=== PATIENT | female | born 1995 | race African-American/Black ===

== ENCOUNTER → 2019-08-04 | Outpatient (CLI) | payer OTHER ==
[2019-08-04 18:00] LABS: HEMATOCRIT 37.7 % (36.0-47.0); HEMOGLOBIN 12.8 g/dl (12.0-15.5); MEAN CORPUSCULAR HEMOGLOBIN 33.4 pg (27.0-33.0); MEAN CORPUSCULAR VOLUME 98.4 fl (80.0-96.0); PLATELET COUNT, AUTOMATED 222 10^3/uL (150-450); RED BLOOD COUNT 3.83 10^6/uL (4.00-5.40); WHITE BLOOD COUNT 9.4 10^3/uL (4.0-10.0)
[2019-08-04 18:22] LABS: ALT/SGPT 19 U/L (12-78); BILIRUBIN,TOTAL 0.4 MG/DL (0.2-1.0); BLOOD UREA NITROGEN 13 MG/DL (7-18); CALCIUM LEVEL 9.3 MG/DL (8.5-10.1); CARBON DIOXIDE LEVEL 29 MEQ/L (21-32); CHLORIDE LEVEL 103 MEQ/L (98-107); CREATININE FOR GFR 0.86 MG/DL (0.55-1.30); FREE T4 1.06 NG/DL (0.76-1.46); GLOMERULAR FILTRATION RATE > 60.0 (>60); GLUCOSE, FASTING 76 MG/DL (70-100); POTASSIUM SERUM 4.2 MEQ/L (3.5-5.1); PROGESTERONE 0.55 NG/ML; SODIUM LEVEL 138 MEQ/L (136-145); THYROID STIMULATING HORMONE 0.904 uIU/ML (0.358-3.740)
[2019-08-04 18:47] LABS: HCG, SERUM QUALITATIVE NEGATIVE (NEGATIVE)
[2019-08-04 19:12] LABS: HEMOGLOBIN A1c 4.4 %
== END ==
LOC: M SMT 12:01
PROVIDERS: ATTEND Advanced Practice Midwife
DX: N92.5 Other specified irregular menstruation (principal)

== ENCOUNTER 2019-11-11 08:41 | Emergency (ER) | payer OTHER ==
[~2019-11-11] VITALS: Ht 170.2 cm; Wt 109.9 kg
[2019-11-11 09:14] LABS: BASO # 0.1 10^3/uL (0.0-0.2); BASO % 0.4 % (0.0-1.0); EOS % 0.1 % (0.0-3.0); HEMATOCRIT 35.2 % (36.0-47.0); HEMOGLOBIN 12.1 g/dl (12.0-15.5); LYMPH # 1.9 10^3/uL (1.5-5.0); LYMPH % 12.9 % (24.0-44.0); MEAN CORPUSCULAR HEMOGLOBIN 32.8 pg (27.0-33.0); MEAN CORPUSCULAR HGB CONC 34.4 g/dl (32.0-36.5); MEAN CORPUSCULAR VOLUME 95.4 fl (80.0-96.0); MONO # 0.6 10^3/uL (0.0-0.8); MONO % 3.9 % (0.0-5.0); NEUTROPHILS % 82.3 % (36.0-66.0); PLATELET COUNT, AUTOMATED 263 10^3/uL (150-450); RED BLOOD COUNT 3.69 10^6/uL (4.00-5.40); WHITE BLOOD COUNT 14.5 10^3/uL (4.0-10.0)
--- NOTE | 2019-11-11 10:47 | REP ---
EMERGENCY FIRST TRIMESTER OBSTETRIC SONOGRAPHY: HISTORY: Bilateral pelvic pain. FINDINGS: Transabdominal scanning confirms the presence of a single living intrauterine gestation. Brethren-rump length of the embryonic pole is 23 mm. This corresponds to a gestational age estimate of 9 weeks 0 days. heart rate is recorded at 178 beats per minute. There is a moderate to large subchorionic hemorrhage identified along the fundal surface of the gestational sac, 5.1 x 6.9 x 3.9 cm. No extrauterine abnormalities observed. IMPRESSION: Viable single intrauterine gestation at 9 weeks 0 days by crown-rump length. AIDE by sonography June 05, 2020. A 6.9 cm fairly large hypoechoic zone adjacent to the gestational sac. Probable subchorionic bleed. Followup suggested. Electronically Signed by Geronimo Lock MD 11/12/2019 05:11 A
[2019-11-11 11:10] VITALS: BP 106/52
== END 2019-11-11 11:16 | disposition home or self-care (01) ==
LOC: M ED 08:41
DX: O21.9 Vomiting of pregnancy, unspecified (principal); Z3A.09 9 weeks gestation of pregnancy

== ENCOUNTER → 2020-01-18 | Outpatient (REF) | payer OTHER ==
[2020-01-18 14:27] LABS: INFLUENZA A AMPLIFICATION NEGATIVE (NEGATIVE); INFLUENZA B AMPLIFICATION NEGATIVE (NEGATIVE)
== END ==
LOC: M LAB REF 13:52
PROVIDERS: ATTEND Physician Assistant
DX: J11.1 Influenza due to unidentified influenza virus with other respiratory manifestations (principal)

== ENCOUNTER 2020-04-05 14:36 | Outpatient (CLI) | payer OTHER ==
[~2020-04-05] VITALS: Ht 170.2 cm; Wt 116.0 kg
[2020-04-05] MEDS ORDERED: PRENTAB9 PO (14:43)
== END 2020-04-05 16:14 | disposition home or self-care (01) ==
LOC: M LDO 14:36
PROVIDERS: ATTEND Obstetrics & Gynecology
DX: O26.893 Other specified pregnancy related conditions, third trimester (principal); R10.9 Unspecified abdominal pain; Z3A.29 29 weeks gestation of pregnancy
CPT/HCPCS: 87086; G0378; G0463

== ENCOUNTER 2020-05-31 14:45 | Inpatient (IN) | payer OTHER ==
[~2020-05-31 14:45] MED LIST: PRENTAB9 PO
[2020-05-31] MEDS ORDERED: OXYTOCIN 30 UNITS IN 0.9% NaCl 500ML IV BAG (J2590) As Ordered ONE (15:41)
[2020-05-31] MEDS ORDERED: OXYTOCIN 30 UNITS IN 0.9% NaCl 500ML IV BAG (J2590) ONE (19:34)
[2020-05-31] MEDS ORDERED: miSOPROStol 50 MCG 1/2 TAB (S0191) ONE (19:34)
[2020-05-31] MEDS ORDERED: miSOPROStol 25 MCG 1/4 TAB (S0191) As Ordered ONE (19:34)
[2020-05-31] MEDS ORDERED: miSOPROStol 25 MCG 1/4 TAB (S0191) ONE (19:34)
[2020-05-31] MEDS ORDERED: miSOPROStol 50 MCG 1/2 TAB (S0191) As Ordered ONE (23:49)
[2020-06-01] MEDS ORDERED: BICITRA 30ML SOLN UDC As Ordered ONE ×2 (02:34→02:41)
[2020-06-01] MEDS ORDERED: ceFAZolin 2 GM/D5W 50 ML IV BAG (J0690 PER 500MG) As Ordered ONE ×2 (02:34→02:41)
[2020-06-01] MEDS ORDERED: ceFAZolin 1GM VIAL (J0690 PER 500MG) As Ordered ONE ×2 (02:34→02:41)
[2020-06-01] MEDS ORDERED: ONDANSETRON 4MG/2ML VIAL As Ordered ONE (05:10)
[2020-06-01] MEDS ORDERED: fentaNYL 100 MCG/2 ML INJECTION (J3010) As Ordered ONE (05:50)
[2020-06-01] MEDS ORDERED: METOCLOPRAMIDE INJ 10MG/2ML VIAL (J2765 PER 1) As Ordered ONE (06:03)
[2020-06-01] MEDS ORDERED: KETOROLAC 30 MG/ML 1ML VIAL As Ordered ONE ×3 (11:25→23:46)
[2020-06-02] MEDS ORDERED: KETOROLAC 30 MG/ML 1ML VIAL As Ordered ONE (05:47)
[2020-06-02] MEDS ORDERED: PRENATAL VITAMINS CHEWABLE TABLET As Ordered ONE (08:43)
[2020-06-02] MEDS ORDERED: PERCOCET 5MG/325MG TAB As Ordered ONE (17:16)
[2020-06-02] MEDS ORDERED: IBUPROFEN 800 MG TAB As Ordered ONE (21:57)
[2020-06-03] MEDS ORDERED: PERCOCET 5MG/325MG TAB As Ordered ONE ×2 (04:18→13:28)
[2020-06-03] MEDS ORDERED: IBUPROFEN 800 MG TAB As Ordered ONE ×3 (05:40→21:37)
[2020-06-03] MEDS ORDERED: PRENATAL VITAMINS CHEWABLE TABLET As Ordered ONE (09:19)
[2020-06-03] MEDS ORDERED: MIRALAX *UNIT DOSE* 17GM PACKET As Ordered ONE ×2 (09:19→21:36)
[2020-06-04] MEDS ORDERED: PERCOCET 5MG/325MG TAB As Ordered ONE (01:10)
[2020-06-04] MEDS ORDERED: IBUPROFEN 800 MG TAB As Ordered ONE (05:42)
[2020-06-04] MEDS ORDERED: PRENATAL VITAMINS CHEWABLE TABLET As Ordered ONE (08:54)
== END 2020-06-04 11:00 | disposition home or self-care (01) | DRG 773 ==
LOC: M LDI 14:45
PROVIDERS: ADMIT Obstetrics & Gynecology; ATTEND Obstetrics & Gynecology
PROC: 10D00Z1 Extraction of Products of Conception, Low, Open Approach (ICD-10-PCS; principal; 2020-06-01)
DX: O41.03X0 Oligohydramnios, third trimester, not applicable or unspecified (principal); O76 Abnormality in fetal heart rate and rhythm complicating labor and delivery; Z37.0 Single live birth; Z3A.37 37 weeks gestation of pregnancy; O36.5990 Maternal care for other known or suspected poor fetal growth, unspecified trimester, not applicable or unspecified; O99.214 Obesity complicating childbirth; O99.02 Anemia complicating childbirth

== ENCOUNTER → 2020-10-01 | Outpatient (CLI) | payer OTHER | LOC: M LABSMTC 13:37 | PROVIDERS: ATTEND Family Medicine | DX: Z20.828 Contact with and (suspected) exposure to other viral communicable diseases (principal) ==

== ENCOUNTER 2020-11-13 13:14 | Inpatient (IN) | payer OTHER ==
[2020-11-13] VITALS (10 sets, daily range): BP systolic 125–176; BP diastolic 63–90
[~2020-11-13] VITALS: Ht 170.2 cm; Wt 113.6 kg
--- OUTSIDE RECORDS SUMMARY | 2020-11-13 13:19 | CCD ---
Author Author [facility] Address Unknown Phone Unavailable Care Team Providers Care Audit Senior Associate Name Role Phone LETTIERE, A SIDNEY PA Unavailable Unavailable LETTIERE, A SIDNEY PA Unavailable Unavailable LETTIERE, A SIDNEY PA Unavailable Unavailable LETTIERE, A SIDNEY PA Unavailable Unavailable LETTIERE, A SIDNEY PA Unavailable Unavailable LETTIERE, A SIDNEY PA Unavailable Unavailable LETTIERE, A SIDNEY PA Unavailable Unavailable LETTIERE, A SIDNEY PA Unavailable Unavailable LETTIERE, A SIDNEY PA Unavailable Unavailable LETTIERE, A SIDNEY PA Unavailable Unavailable LETTIERE, A SIDNEY PA Unavailable Unavailable LETTIERE, A SIDNEY PA Unavailable Unavailable LETTIERE, A SIDNEY PA Unavailable Unavailable LETTIERE, A SIDNEY PA Unavailable Unavailable LETTIERE, A SIDNEY PA Unavailable Unavailable LETTIERE, A SIDNEY PA Unavailable Unavailable LETTIERE, A SIDNEY PA Unavailable Unavailable LETTIERE, A SIDNEY PA Unavailable Unavailable LETTIERE, A SIDNEY PA Unavailable Unavailable LETTIERE, A SIDNEY PA Unavailable Unavailable LETTIERE, A SIDNEY PA Unavailable Unavailable LETTIERE, A SIDNEY PA Unavailable Unavailable LETTIERE, A SIDNEY PA Unavailable Unavailable LETTIERE, A SIDNEY PA Unavailable Unavailable LETTIERE, A SIDNEY PA Unavailable Unavailable LETTIERE, A SIDNEY PA Unavailable Unavailable LETTIERE, A SIDNEY PA Unavailable Unavailable LETTIERE, A SIDNEY PA Unavailable Unavailable LETTIERE, A SIDNEY PA Unavailable Unavailable Re-disclosure Warning The records that you are about to access may contain information from federally-assisted alcohol or drug abuse programs. If such information is present, then the following federally mandated warning applies: This information has been disclosed to you from records protected by federal confidentiality rules (42 CFR part 2). The federal rules prohibit you from making any further disclosure of this information unless further disclosure is expressly permitted by the written consent of the person to whom it pertains or as otherwise permitted by 42 CFR part 2. A general authorization for the release of medical or other information is NOT sufficient for this purpose. The Federal rules restrict any use of the information to criminally investigate or prosecute any alcohol or drug abuse patient.The records that you are about to access may contain highly sensitive health information, the redisclosure of which is protected by Article 27-F of the [facility] Public Health law. If you continue you may have access to information: Regarding HIV / AIDS; Provided by facilities licensed or operated by the [facility] Office of Mental Health; or Provided by the [facility] Office for People With Developmental Disabilities. If such information is present, then the following [facility] mandated warning applies: This information has been disclosed to you from confidential records which are protected by state law. State law prohibits you from making any further disclosure of this information without the specific written consent of the person to whom it pertains, or as otherwise permitted by law. Any unauthorized further disclosure in violation of state law may result in a fine or long term sentence or both. A general authorization for the release of medical or other information is NOT sufficient authorization for further disc losure. Family History Family Member Name Family Member Gender Family Member Status Date o f Status Description Data Source(s) Unknown Unknown Problem MEDENT ([facility], ) Encounters Encounter Providers Location Date Indications Data Source(s ) Outpatient Attender: SIDNEY montiel 07/27/2020 03:35:00 PM EDT [facility] ([facility], [facility]) Medications Medication Brand Name Start Date Product Form Dose Route Admi nistrative Instructions Pharmacy Instructions Status Indications Reaction Description Data Source(s) No Active Medications 07/27/2020 12:00:00 AM EDT completed [facility] ([facility] Erythromycin 0.005 MG/MG Ophthalmic Ointment Erythromycin 07/27/2020 12:00:00 AM EDT OPHTHALMIC active [facility] ([facility], [facility]) Insurance Providers Payer name Policy type / Coverage type Policy ID Covered green party ID Covered green party's relationship to brady Policy Brady Plan Information [facility] [id number] [facility] [id number] [facility] [id number] [facility] [id number] [employer] (2018) Health Maintenance Organization (HMO) [id number] Family Dependent [id number] Results ID Date Data Source [id number] 10/01/2020 01:00:00 PM EST [facility] Name Value Range Interpretation Code Description Data Daniela rce(s) Supporting Document(s) SARS coronavirus 2 RNA [facility] This lab was ordered by [facility] and reported by [facility]. Procedure Vital Signs ID Date Data Source UNK Name Value Range Interpretation Code Description Data Source(s) Body mass index (BMI) [Ratio] 38.2 kg/m2 38.2 k g/m2 [facility], [facility]) Body height 67 [in_i] 67 [in_i] [facility] ([facility], [facility]) 5'7" Body weight 244.00 [lb_av] 244.00 [lb_av] [facility] T ([facility], [facility]) Body temperature 98.6 [degF] 98.6 [degF] [facility]) Oxygen saturation in Arterial blood by Pulse oximetry 99 % 99 % [facility] ([facility], [facility]) Respiratory rate 16 /min 16 /min [facility] ( [facility], [facility]) Heart rate 100 /min 100 /min [facility] ([facility], [facility]) Diastolic blood pressure 80 mm[Hg] 80 mm[Hg] [facility] ([facility]) Systolic blood pressure 137 mm[Hg] 137 mm[Hg] [facility], [facility])
[2020-11-13] MEDS ORDERED: FERR325T18 PO (13:23)
[2020-11-13] MEDS ORDERED: NS 1,000 ML IV ONE (13:45)
--- OUTSIDE RECORDS SUMMARY | 2020-11-13 14:45 | CCD ---
Author Author [facility] Organization [facility] Address Unknown Phone Unavailable Care Team Providers Care Safety Compliance Specialist Name Role Phone LETTIERE, A SIDNEY PA [...] protected by Article 27-F of the [facility] law. If you continue you may have access to information: Regarding HIV / AIDS; Provided by facilities licensed or operated by the [facility] Office of Mental Health; or Provided by the [facility] Office for People With Developmental Disabilities. If such information is present, then the following [facility] mandated warning applies: This information has been [...] law may result in a fine or mcc sentence or both. A general authorization for the release of medical or other information is NOT sufficient authorization for further disc losure. Family History Family Member Name Family Member Gender Family Member Status Date o f Status Description Data Source(s) Unknown Unknown Problem MEDENT ([facility], ) Encounters Encounter Providers Location Date Indications Data Source(s ) Outpatient Attender: SIDNEY montiel 07/27/2020 03:35:00 PM EDT MED[facility] ([facility], [facility]) Medications Medication Brand Name Start Date Product Form Dose Route Admi nistrative Instructions Pharmacy Instructions Status Indications Reaction Description Data Source(s) No Active Medications 07/27/2020 12:00:00 AM EDT completed MEDENT ([facility], [facility]) Erythromycin 0.005 MG/MG Ophthalmic Ointment Erythromycin 07/27/2020 12:00:00 AM EDT OPHTHALMIC active MEDENT ([facility], [facility]) Insurance Providers Payer name Policy type / Coverage type Policy ID Covered alliance party ID Covered alliance party's relationship to brady Policy Brady Plan Information [facility] [id number] [facility] [id number] [facility] [id number] [facility] [id number] [employer] (2018) Health Maintenance Organization (HMO) [id number] Family Dependent [id number] Results ID Date Data Source [id number] 10/01/2020 01:00:00 PM EST [facility] Name Value Range Interpretation Code Description Data Daniela rce(s) Supporting Document(s) SARS coronavirus 2 RNA [facility] This lab was ordered by [facility] and reported by [facility]. Procedure Vital Signs ID Date Data Source UNK Name Value Range Interpretation Code Description Data Source(s) Body mass index (BMI) [Ratio] 38.2 kg/m2 38.2 k g/m2 MEDENT ([facility], [facility]) Body height 67 [in_i] 67 [in_i] [facility] ([facility], [facility]) 5'7" Body weight 244.00 [lb_av] 244.00 [lb_av] MEDEN T ([facility], [facility]) Body temperature 98.6 [degF] 98.6 [degF] [facility]) Oxygen saturation in Arterial blood by Pulse oximetry 99 % 99 % [facility] ([facility], [facility]) Respiratory rate 16 /min 16 /min [facility] ( [facility], [facility]) Heart rate 100 /min 100 /min [facility] ([facility], [facility]) Diastolic blood pressure 80 mm[Hg] 80 mm[Hg] [facility]) Systolic blood pressure 137 mm[Hg] 137 mm[Hg] ED[facility] ([facility], [facility])
[2020-11-13 15:16] LABS: BASO % 0.4 % (0.0-1.0); EOS # 0.1 10^3/uL (0.0-0.5); HEMATOCRIT 22.1 % (36.0-47.0); LYMPH # 1.7 10^3/uL (1.5-5.0); LYMPH % 18.5 % (24.0-44.0); MEAN CORPUSCULAR HEMOGLOBIN 30.2 pg (27.0-33.0); MEAN CORPUSCULAR HGB CONC 30.8 g/dl (32.0-36.5); MEAN CORPUSCULAR VOLUME 98.2 fl (80.0-96.0); MONO # 0.3 10^3/uL (0.0-0.8); MONO % 2.8 % (0.0-5.0); NEUTROPHILS # 6.9 10^3/uL (1.5-8.5); PLATELET COUNT, AUTOMATED 281 10^3/uL (150-450); RED BLOOD COUNT 2.25 10^6/uL (4.00-5.40)
[2020-11-13 15:19] LABS: HEMOGLOBIN 6.8 g/dl (12.0-15.5)
[2020-11-13 15:49] LABS: BLOOD UREA NITROGEN 8 MG/DL (7-18); CALCIUM LEVEL 8.8 MG/DL (8.5-10.1); CARBON DIOXIDE LEVEL 27 MEQ/L (21-32); CHLORIDE LEVEL 108 MEQ/L (98-107); CREATININE FOR GFR 0.85 MG/DL (0.55-1.30); GLOMERULAR FILTRATION RATE > 60.0 (>60); GLUCOSE, FASTING 82 MG/DL (70-100); SODIUM LEVEL 137 MEQ/L (136-145)
[2020-11-13] MEDS: medroxyPROGESTERone 5MG TABLET PO SCH ×2 (16:00→21:55)
[2020-11-13 16:01] LABS: HCG, SERUM QUANTITATIVE < 1.0 MIU/ML
--- NOTE | 2020-11-13 16:42 | REP ---
INDICATION: bleeding. COMPARISON: None TECHNIQUE: Transvesical and transvaginal FINDINGS: The uterus measures 9.8 x 4.8 by 5.6 cm. The uterine parenchymal echo prior dense heterogenous, however, there are no discrete masses. The endometrial echo complex measures 9 mm in its greatest thickness and is slightly heterogenous. The right ovary measures 4.7 x 2.6 x 2.3 cm and is within normal limits with an RI 0.44. There are numerable sub cm sized ovarian follicles approximately 12 in number. Left ovary measures 4.1 x 3.3 x 3 cm and is within normal limits with an RI 0.54. There are numerable subcentimeter sized follicles in the left ovary is well Urinary bladder measures 6 x 5 x 8 cm. IMPRESSION: There is no evidence of acute disease. Bilateral ovarian follicles as described above. If polycystic ovarian syndrome is of clinical concern that I would suggest an ovarian follicle study. <Electronically signed by Rubén Farooq > 11/13/20 [id number]
[2020-11-13] MEDS ORDERED: ONDANSETRON 4MG/2ML VIAL IV PRN (17:00)
--- OUTSIDE RECORDS SUMMARY | 2020-11-13 17:17 | CCD ---
Author Author [facility] Organization [facility] Address Unknown Phone Unavailable Care Team Providers Care Merchandise Director Name Role Phone LETTIERE, A SIDNEY PA [...] is protected by Article 27-F of the [facility] Public Health law. If you continue you may have access to information: Regarding HIV / AIDS; Provided by facilities licensed or operated by the [facility] Office of Mental Health; or Provided by the [facility] Office for People With Developmental Disabilities. If such information is present, then the following [facility] mandated warning applies: This information has [...] law may result in a fine or retirement sentence or both. A general authorization for the release of medical or other information is NOT sufficient authorization for further disc losure. Family History Family Member Name Family Member Gender Family Member Status Date o f Status Description Data Source(s) Unknown Unknown Problem MEDENT ([facility], ) Encounters Encounter Providers Location Date Indications Data Source(s ) Outpatient Attender: SIDNEY montiel 07/27/2020 03:35:00 PM EDT MED[facility] ([facility], [facility]) Medications Medication Brand Name Start Date Product Form Dose Route Admi nistrative Instructions Pharmacy Instructions Status Indications Reaction Description Data Source(s) No Active Medications 07/27/2020 12:00:00 AM EDT completed MED[facility] ([facility], [facility]) Erythromycin 0.005 MG/MG Ophthalmic Ointment Erythromycin 07/27/2020 12:00:00 AM EDT OPHTHALMIC active [facility] ([facility], [facility]) Insurance Providers Payer name Policy type / Coverage type Policy ID Covered democrat ID Covered democrat's relationship to brady Policy Brady Plan Information [facility] [id number] [facility] [id number] [facility] [id number] [facility] [id number] [employer] (2018) Health Maintenance Organization (HMO) [id number] Family Dependent [id number] Results ID Date Data Source [id number] 10/01/2020 01:00:00 PM EST [facility] Name Value Range Interpretation Code Description Data Daniela rce(s) Supporting Document(s) SARS coronavirus 2 RNA [facility] This lab was ordered by [facility] and reported by [facility]. Procedure Vital Signs ID Date Data Source UNK Name Value Range Interpretation Code Description Data Source(s) Body mass index (BMI) [Ratio] 38.2 kg/m2 38.2 k g/m2 MEDENT ([facility], [facility]) Body height 67 [in_i] 67 [in_i] [facility] ([facility], [facility]) 5'7" Body weight 244.00 [lb_av] 244.00 [lb_av] MEDEN T ([facility], [facility]) Body temperature 98.6 [degF] 98.6 [degF] [facility] Oxygen saturation in Arterial blood by Pulse oximetry 99 % 99 % [facility] ([facility], [facility]) Respiratory rate 16 /min 16 /min [facility] ( [facility], [facility]) Heart rate 100 /min 100 /min [facility] ([facility], [facility]) Diastolic blood pressure 80 mm[Hg] 80 mm[Hg] [facility] ([facility]) Systolic blood pressure 137 mm[Hg] 137 mm[Hg] [facility] ([facility], [facility])
[2020-11-13 17:33] LABS: LDH LACTATE DEHYDROGENASE 131 U/L (84-246)
[2020-11-13 17:35] LABS: RSV AMPLIFICATION NEGATIVE (NEGATIVE)
[2020-11-13 17:36] LABS: FERRITIN 4 NG/ML (8-252); IRON (FE) 29 UG/DL (50-170); PERCENT SATURATION 6.6 % (13.2-45.0); TOTAL IRON BINDING CAPACITY 437 UG/DL (250-450)
--- NOTE | 2020-11-13 19:40 | HPEPDOC ---
General Date of Admission Nov 13, 2020 Date of Service: Nov 13, 2020 Chief Complaint The patient is a 25-year-old female admitted with a reason for visit of Vaginal Bleeding. Source: Patient History of Present Illness Mrs. Petersen is a 25-year-old female with anemia and in May 2020 who presents to the ED for dyspnea and found to be acutely anemic. She tells me that after giving , she had her first vaginal bleed in September 2020. She thought this was her regular menses cycle, but it continued into October 2020. On a week ago she saw her doctor who started her on iron supplements. She was knocking better progressively more short of breath. She came into the ED and her hemoglobin was 6.8. Her last hemoglobin was 8.5 in June 2020. She denies any hemoptysis, epistaxis, hematochezia, or melena. She denies any changes in her stool color. She does report increasing shortness of breath. If she tries to walk, she gets short of breath and dizzy. ED contacted Dr. De La Cruz. I reached out to Dr. De La Cruz as well, recommended contraception suspicious Provera 20 mg 3 times a day for one week and then follow-up outpatient. Otherwise she has 2 units of packed red cells to be transfused tonight. Patient will be admitted for acute blood loss anemia from vaginal bleed. Home Medications Scheduled Ferrous Sulfate (Ferrous Sulfate) 325 Mg Tablet, 325 MG PO TID, (Reported) Allergies Coded Allergies: No Known Allergies (Unverified , 11/11/19) Past Medical History Medical History 1. Anemia 2/2 vaginal bleeding requiring blood transfusions Surgical History 2. Family History Father: Unknown past medical history Mother: Anemia Social History * Smoker: current smoker Alcohol: Denies Drugs: denies A-FIB/CHADSVASC A-FIB History Current/History of A-Fib/PAF?: No Review of Systems Constitutional: Denies: Fever Eyes: Denies: Vision change ENT: Denies: Sore Throat Skin: Denies: Rash Pulmonary: Reports: Dyspnea; Denies: Cough Cardiovascular: Denies: Chest Pain Gastrointestinal: Denies: Nausea, Abdominal Pain Genitourinary: Denies: Dysuria Hematologic: Denies: Bruising Musculoskeletal: Denies: Muscle Pain Psych: Denies: Anxiety, Depression Physical Examination General Exam: Positive: Alert, Cooperative Eye Exam: Positive: EOMI; Negative: Sclera icteric ENT Exam: Positive: Atraumatic, Mucous membr. moist/pink Neck Exam: Positive: Supple Chest Exam: Positive: Clear to auscultation; Negative: Rales, Rhonchi, Wheezing Heart Exam: Positive: Rate Normal, Regular Rhythm Abdomen Exam: Positive: Normal bowel sounds, Soft; Negative: Tenderness Extremity Exam: Negative: Edema Neuro Exam: Positive: Normal Speech, Cranial Nerves 3-12 NL Psych Exam: Positive: Mental status NL, Mood NL Vital Signs Vital Signs Date Time Temp Pulse Resp B/P (MAP) Pulse Ox O2 Delivery O2 Flow Rate FiO2 11/13/20 15:20 81 135/63 (87) 11/13/20 15:12 Room Air 11/13/20 13:14 97.4 20 100 Laboratory Data Labs 24H Laboratory Tests 2 11/13/20 15:08: Immature Granulocyte % (Auto) 0.3, Neutrophils (%) (Auto) 77.0H, Lymphocytes (%) (Auto) 18.5L, Monocytes (%) (Auto) 2.8, Eosinophils (%) (Auto) 1.0, Basophils (%) (Auto) 0.4, Neutrophils # (Auto) 6.9, Lymphocytes # (Auto) 1.7, Monocytes # (Auto) 0.3, Eosinophils # (Auto) 0.1, Basophils # (Auto) 0.0, Nucleated Red Blood Cells % (auto) 0.2H 11/13/20 15:09: Anion Gap 2L, Glomerular Filtration Rate > 60.0, Calcium Level 8.8, Human Chorionic Gonadotropin, Quant < 1.0 11/13/20 16:49: CBC/BMP Laboratory Tests 11/13/20 15:08 11/13/20 15:09 Assessment/Plan Mrs. Petersen is a 25-year-old female with anemia and in May 2020 who presents to the ED for dyspnea and found to be acutely anemic. Patient tells me that this is not the first time it's happened. It's happened 3 times in the past where she is required transfusions. She would end up on contraception to stop the bleeding, but she will get nauseous and take herself off of contraception. I discussed this with MANAGER POWER, and Dr. De La Cruz recommended that we can treat her with Zofran while she is on the contraception. Otherwise, plan to transfuse 2 units of packed red blood cells tonight. We'll try the Provera to see if her vaginal bleeding stops. Plan / VTE VTE Prophylaxis Ordered?: Yes Plan Plan 1. Acute blood loss anemia secondary to vaginal bleed Unknown hemoglobin baseline. In May 2020 hemoglobin was 10.6. In June 2020 hemoglobin was 8.5 Today hemoglobin 6.8 She has been consented for blood products and will be transfused 2 units of packed red blood cells tonbraden Spoke with MANAGER POWER, Dr. De La Cruz who recommended Provera to stop the bleeding and follow up outpatient Patient gets nauseous on contraception, ordered Zofran for nausea Recheck CBC 1 hour after second blood transfusion is completed 2. Iron deficiency anemia We will able to get iron studies before blood was given. She is iron deficiency anemia with ferritin of 4 and iron of 29 Which exhibits were 5.6% which correlated today particularly index of 1.47 indicating hyperproliferation We'll continue her iron supplements. 3. Macrocytic anemia MCV is elevated despite having iron deficiency anemia We'll order B12 supplements and folic acid 4. DVT ppx -As bleeding, no chemical ppx. SCD and TEDs MOLINA MARTINEZ DO Nov 13, 2020 17:02
[2020-11-14 00:22] LABS: HEMOGLOBIN 8.1 g/dl (12.0-15.5); MEAN CORPUSCULAR HEMOGLOBIN 29.6 pg (27.0-33.0); MEAN CORPUSCULAR HGB CONC 31.2 g/dl (32.0-36.5); MEAN CORPUSCULAR VOLUME 94.9 fl (80.0-96.0); PLATELET COUNT, AUTOMATED 234 10^3/uL (150-450); RED BLOOD COUNT 2.74 10^6/uL (4.00-5.40); WHITE BLOOD COUNT 10.3 10^3/uL (4.0-10.0)
[2020-11-14 08:15] VITALS: BP 143/93
[2020-11-14 08:22] LABS: HEMATOCRIT 24.6 % (36.0-47.0); HEMOGLOBIN 7.9 g/dl (12.0-15.5); MEAN CORPUSCULAR HEMOGLOBIN 29.9 pg (27.0-33.0); MEAN CORPUSCULAR HGB CONC 32.1 g/dl (32.0-36.5); MEAN CORPUSCULAR VOLUME 93.2 fl (80.0-96.0); PLATELET COUNT, AUTOMATED 204 10^3/uL (150-450); RED BLOOD COUNT 2.64 10^6/uL (4.00-5.40); WHITE BLOOD COUNT 8.1 10^3/uL (4.0-10.0)
[2020-11-14 08:58] LABS: ALBUMIN 3.4 GM/DL (3.2-5.2); ALT/SGPT 17 U/L (12-78); BILIRUBIN,TOTAL 0.6 MG/DL (0.2-1.0); BLOOD UREA NITROGEN 7 MG/DL (7-18); CALCIUM LEVEL 8.1 MG/DL (8.5-10.1); CARBON DIOXIDE LEVEL 26 MEQ/L (21-32); CHLORIDE LEVEL 107 MEQ/L (98-107); CREATININE FOR GFR 0.76 MG/DL (0.55-1.30); GLOMERULAR FILTRATION RATE > 60.0 (>60); GLUCOSE, FASTING 79 MG/DL (70-100); POTASSIUM SERUM 3.7 MEQ/L (3.5-5.1); SODIUM LEVEL 139 MEQ/L (136-145); TOTAL PROTEIN 6.4 GM/DL (6.4-8.2)
[2020-11-14] MEDS ORDERED: FOLIC ACID 1 MG TAB PO SCH (09:00)
[2020-11-14] MEDS ORDERED: FERROUS SULFATE 325MG TAB PO SCH (09:00)
[2020-11-14] MEDS ORDERED: CYANOCOBALAMIN 500 MCG TAB PO SCH (09:00)
[2020-11-14] MEDS: medroxyPROGESTERone 5MG TABLET PO SCH (09:32)
[2020-11-14 13:04] LABS: HEMATOCRIT 26.1 % (36.0-47.0); HEMOGLOBIN 8.1 g/dl (12.0-15.5); MEAN CORPUSCULAR HEMOGLOBIN 28.6 pg (27.0-33.0); MEAN CORPUSCULAR VOLUME 92.2 fl (80.0-96.0); PLATELET COUNT, AUTOMATED 219 10^3/uL (150-450); RED BLOOD COUNT 2.83 10^6/uL (4.00-5.40); WHITE BLOOD COUNT 8.4 10^3/uL (4.0-10.0)
[2020-11-14] MEDS ORDERED: ONDA4INJ4 IV (13:53)
[2020-11-14] MEDS ORDERED: MEDR5TAB3 PO (13:53)
[2020-11-14] MEDS ORDERED: ONDA4TAB6 PO (13:55)
--- NOTE | 2020-11-14 23:43 | DS.PDOC ---
Discharge Summary General Date of Admission Nov 13, 2020 at 16:51 Discharge Summary PROCEDURES PERFORMED DURING STAY: [None]. ADMITTING DIAGNOSES: 1. . DISCHARGE DIAGNOSES: 1. . COMPLICATIONS/CHIEF COMPLAINT: Vaginal Bleeding,Anemia. HISTORY OF PRESENT ILLNESS: . HOSPITAL COURSE: . DISCHARGE MEDICATIONS: Please see below. ALLERGIES: Please see below. PHYSICAL EXAMINATION ON DISCHARGE: VITAL SIGNS: Please see below. GENERAL: HEENT: NECK: CARDIOVASCULAR EXAMINATION: RESPIRATORY EXAMINATION: ABDOMINAL EXAMINATION: EXTREMITIES: SKIN: NEUROLOGICAL EXAMINATION: PSYCHIATRIC EXAMINATION: LABORATORY DATA: Please see below. IMAGING: PROGNOSIS: ACTIVITY: [As tolerated]. DIET: DISCHARGE PLAN: DISPOSITION: Home, Self-Care. DISCHARGE INSTRUCTIONS: 1. . ITEMS TO FOLLOWUP ON ON OUTPATIENT: 1. . DISCHARGE CONDITION: [Stable]. TIME SPENT ON DISCHARGE: Greater than minutes. Vital Signs/I&Os Vital Signs Date Time Temp Pulse Resp B/P (MAP) Pulse Ox O2 Delivery O2 Flow Rate FiO2 11/14/20 08:15 97.4 61 18 143/93 (110) 100 Room Air I&O- Last 24 Hours up to 6 AM 11/14/20 06:00 Intake Total 2918 ml Output Total 1450 ml Balance 1468 ml Laboratory Data Labs 24H Laboratory Tests 2 11/13/20 23:58: Nucleated Red Blood Cells % (auto) 0.0 11/14/20 07:46: Nucleated Red Blood Cells % (auto) 0.0, Anion Gap 6L, Glomerular Filtration Rate > 60.0, Calcium Level 8.1L, Total Bilirubin 0.6, Aspartate Amino Transf (AST/SGOT) 13, Alanine Aminotransferase (ALT/SGPT) 17, Alkaline Phosphatase 75, Total Protein 6.4, Albumin 3.4, Albumin/Globulin Ratio 1.1L 11/14/20 10:35: Lab Scanned Report Transfusion Record 11/14/20 12:54: Nucleated Red Blood Cells % (auto) 0.0 CBC/BMP Laboratory Tests 11/13/20 23:58 11/14/20 07:46 11/14/20 12:54 Discharge Medications Scheduled Ferrous Sulfate (Ferrous Sulfate) 325 Mg Tablet, 325 MG PO TID, (Reported) Medroxyprogesterone Acetate (Medroxyprogesterone Acetate) 5 Mg Tablet, 20 MG PO TID Scheduled PRN Ondansetron (Ondansetron Odt) 4 Mg Tab.rapdis, 4 MG PO Q6-8HP PRN for nausea/vomiting Allergies Coded Allergies: No Known Allergies (Unverified , 11/11/19) MOLINA MARTINEZ DO Nov 14, 2020 23:43
== END 2020-11-14 15:05 | disposition home or self-care (01) | DRG 812 ==
LOC: M ED 13:14 → M ED INP 16:51 → M PED 20:00
PROVIDERS: ADMIT Internal Medicine; ATTEND Internal Medicine
PROC: 30233N1 Transfusion of Nonautologous Red Blood Cells into Peripheral Vein, Percutaneous Approach (ICD-10-PCS; principal; 2020-11-13)
DX: D62 Acute posthemorrhagic anemia (principal); N93.9 Abnormal uterine and vaginal bleeding, unspecified; F17.200 Nicotine dependence, unspecified, uncomplicated; D50.9 Iron deficiency anemia, unspecified; Z79.899 Other long term (current) drug therapy

== ENCOUNTER → 2021-11-06 | Outpatient (CLI) | payer OTHER ==
[~2021-11-06] MED LIST changes: +FERR325T18 PO; +MEDR5TAB3 PO; +ONDA4INJ4 IV; +ONDA4TAB6 PO
--- NOTE | 2021-11-06 09:55 | REP ---
INDICATION: MASTODYNIA. COMPARISON: None TECHNIQUE: Real-time sonographic evaluation of left breast performed. FINDINGS: At the site of reported pain in the upper-outer quadrant of the left breast, no cystic or solid nodule is seen. IMPRESSION: BIRADS/ACR category 1, negative ultrasound left breast upper outer quadrant. No cystic or solid mass is visualized. RECOMMENDATION: Clinical correlation and follow-up. <Electronically signed by René Gupta > 11/06/21 0951
== END ==
LOC: M WHC 09:09
PROVIDERS: ATTEND Nurse Practitioner Primary Care
DX: N64.4 Mastodynia (principal)